=== PATIENT | male | born 1980 ===

== ENCOUNTER 2025-07-24 00:04 | Emergency (ER) | payer MEDICAID, OTHER ==
[~2025-07-24] VITALS: Ht 180.3 cm; Wt 160.0 kg
[2025-07-24] MEDS ORDERED: EPINEPHrine HCL 1 MG/10 ML SYRG IV ONE (00:05)
[2025-07-24] MEDS ORDERED: SODIUM BICARB 8.4% 50Meq/50ml SYR INJ IV ONE (00:05)
[2025-07-24] MEDS ORDERED: CALCIUM CHLOR(10%) 100MG/ML 10ML SYRINGE IV ONE (00:05)
[2025-07-24 00:15] VITALS: BP 0/0; PULSE 0; RESP 18; TEMP 98.6; O2SAT 90
--- NOTE | 2025-07-24 00:24 | ED.PDOC ---
History of Present Illness HPI Comments 45-year-old male who came to ER by EMS in cardiac arrest. Patient is last seen normal by family members at 10:40 p.m. was found unresponsive and paramedics were on scene by 11:04 p.m.. Patient was unresponsive on scene, CPR initiated by family members. Patient was asystole and CPR continued. IO at both legs, fluids given, intubated and chest compressions initiated. A total of 10 epinephrine was given, 1 NaHCO3 and 1 Calcium. Patient was shocked once at 120 joules. Patient remained asystole upon arrival at ER at 12:04 a.m. . Blood sugar was 465 on scene. reported that patient was reporting feeling weak, having difficulty walking prior to the event. REVIEW OF SYSTEMS: Unresponsive, patient in cardiac arrest Physical exam: General: Patient is unresponsive HEENT: Pupils fixed, dilated, nonreactive. There is no corneal reflex. Cardiac: No heart sounds auscultated, no pulses palpated Abdomen: Soft, nondistended Respiratory: No spontaneous respirations, no breath sounds auscultated Neuro: GCS 3, patient is unresponsive to painful stimulus, Chief Complaint: Cardiac arrest Time Seen by MD: 00:22 Reviewed Notes: Leader Writer Notes Allergies: Coded Allergies: Penicillins (Verified Allergy, Unknown, 07/24/25) Information Source: Emergency Med Personnel Mode of Arrival: EMS Past Medical History PAST MEDICAL HISTORY: DM Surgical History: Unobtainable Family History Family History: Unobtainable Social History Smoker: Unobtainable Alcohol: Unobtainable Drugs: Unobtainable Lives In: Home Was a procedure done? Was a procedure done?: No Differential Dx Considerations may include: Cardiac tamponade, hypovolemia, tension pneumothorax, myocardial infarction, pulmonary embolism, hemorrhagic shock, trauma, cardiac arrhythmia, hypoglycemia, CVA, hypothermia, hypo anemia, hyperkalemia, other X-Ray, Labs, Meds, VS Vital Signs Date Time Temp Pulse Resp B/P (MAP) Pulse Ox O2 Delivery O2 Flow Rate FiO2 07/24/25 00:15 98.6 0 0 0/0 0 98.6 Time of 1ST Reevaluation: 00:12 Reevaluation 1ST: Unchanged Patient Education/Counseling: Pt Unresponsive Family Education/Counseling: Other SEPSIS Sepsis Screen Vital Signs Date Time Temp Pulse Resp B/P (MAP) Pulse Ox O2 Delivery O2 Flow Rate FiO2 07/24/25 00:15 98.6 0 0 0/0 0 98.6 Departure 1 Departure Time of Disposition: 00:14 Impression: Primary Impression: Cardiac arrest Disposition: 20 Condition: Other () Comments 45-year-old male arrived to the emergency department in cardiac arrest with ACLS protocols in progress by EMS ongoing for over 1 hour. The patient has been intubated by EMS prior to arrival to the emergency department. On arrival to the emergency department Cardiac compressions were continued by staff in order to sustain blood flow. The patient was ventilated and oxygenated. The patient received appropriate ACLS measures and these were repeated as necessary throughout the resuscitation. CPR was performed under my direct supervision and guidance. See patient resuscitation status note for medications and times given. After discontinuation of resuscitation, I did not observe spontaneous breathing or appreciate heart sounds on auscultation. There was no palpable radial pulse. The patient did not respond to nail bed stimuli. I examined the patient and there was no pupillary response to light. Patient was pronounced . TOD: 0:14 Patient's family members were informed after their arrival to the emergency department. Critical Care Note Critical Care Time?: No Stability Stability form required: No Heart Score Heart Score: Heart Score Response (Comments) Value History N/A 0 EKG N/A 0 Age N/A 0 Risk Factors N/A 0 Troponin N/A 0 Total 0 I personally scribed for KIMI MARTELL MD ([email or web address]) on 07/24/25 at 00:24. Electronically submitted by Shalom Braun ([employer]). I personally scribed for KIMI MARTELL MD ([email or web address]) on 07/24/25 at 00:25. Electronically submitted by Shalom Braun ([employer]). KIMI MARTELL MD Jul 24, 2025 00:24
--- NOTE | 2025-07-24 06:34 | RESUS ---
CODE BLUE ASSESSSMENT History of Events History of Events: 45-year-old male who came to ER by EMS in cardiac arrest. Patient is last seen normal by family members at 10:40 p.m. was found unresponsive and paramedics were on scene by 11:04 p.m.. Patient was unresponsive on scene, CPR initiated by family members. Patient was asystole and CPR continued. IO at both legs, fluids given, intubated and chest compressions initiated. A total of 10 epinephrine was given, 1 NaHCO3 and 1 Calcium. Patient was shocked once at 120 joules. Patient remained asystole upon arrival at ER at 12:04 a.m. . Blood sugar was 465 on scene. reported that patient was reporting feeling weak, having difficulty walking prior to the event. Initial Information Date: Jul 23, 2025 Time: 22:40 Location of Arrest: In Field Arrest Witnessed: Yes CPR started initial time: 22:50 CPR started by whom: EMS Pre-Hospital Care: ACLS Type of arrest: Cardiac, Respiratory, Witnessed Spontaneous Respirations: No Pulse Present: No Monitoring: ECG, Pulse Oximetry, Apnea, Telemetry Crash Cart Opened and Supplies: Yes Airway Ventilation Breathing at Onset: Apneic O2 Sat by Pulse Oximetry: 0 Oxygen Delivery Method: Ambu-Bag Artificial Ventilation: Bag/Endo tube Intubation Size: 8.0 cuffed Intubated orally: Yes Tube secured at: 24 Confirmation: Auscultation, Exhaled CO2 Comments: pt intubated prior to arrival to er Circulation Circulation : Time: 00:05 Pulse Rate (adult): 0 Blood Pressure Systolic: 0 Blood Pressure Diastolic: 0 Temperature (Fahrenheit): 098.6 Procedure - IV Procedure - IV : IV start time: 00:08 IV Side: Right IV Location: Forarm Posterior IV Catheter Type: Saline Lock IV Placed: In Hospital IV Gauge: 20 Procedure - Intraosseous Site of Intraosseous: Tibia chirag-medial Comment: PLACED IN FIELD Medications & Response Medications and Responses #1: Medication Time: 00:05 ADULT Medications Given ADULT: Epinephrine 1 mg, Sodium Bacarbinate 50 meq, Calcium Chloride 10 mL Route of Administration: IO Heart Rate: 0 EKG Rhythm: Asystole Blood Pressure Systolic: 0 Blood Pressure Diastolic: 0 Respiratory Rate: 0 O2 Sat by Pulse Oximetry: 0 EKG Rhythm: Asystole Comment PULSE CHECK AT 0008 NO PULSE Medications and Responses #2: Medication Time: 00:08 ADULT Medications Given ADULT: Epinephrine 1 mg Route of Administration: IV Heart Rate: 0 EKG Rhythm: Asystole Blood Pressure Systolic: 0 Blood Pressure Diastolic: 0 Respiratory Rate: 0 O2 Sat by Pulse Oximetry: 0 IV Line Rate: 1000 EKG Rhythm: Asystole Comment 0011 NO PULSE Medications and Responses #3: Medication Time: 00:11 ADULT Medications Given ADULT: Epinephrine 1 mg Route of Administration: IV Heart Rate: 0 Blood Pressure Systolic: 0 Blood Pressure Diastolic: 0 Respiratory Rate: 0 O2 Sat by Pulse Oximetry: 0 EKG Rhythm: Asystole Comment NO PULSE 0014 PT PRONOUNCED. Pacing Pacer Pads Applied and Pacing: Yes Nurses Notes Lucia Coma Scale Eye Opening: None (1) [place] Coma Scale Verbal: None (1) [place] Coma Scale Motor: None (1) Pupil Reaction: Non Reactive Bedside Blood Glucose: 368 EKG Rhythm: Asystole Time Code Ended Time Code Ended: 00:14 Post Arrest Status: Outcome of code: Unsuccessful Patient pronounced by: DR. MARTELL Time patient pronounced: 00:14 Family notified: Yes Attending called: Yes Code Team Present: JEAN OAKLEY RN HS, [employer], REY RN, MANOJ RN, WILIAM RN, ROSANNA ERT, RAJINDER ERT, ÁNGELA RT, MORA RT Post Resuscitation Neurologica Pupil Size: 4 Comment: JEAN BLACKMON Jul 24, 2025 06:34
== END 2025-07-24 00:14 ==
LOC: ER 00:04 → EDBD 00:04 → ER 00:14
DX: I46.9 Cardiac arrest, cause unspecified (principal); E11.9 Type 2 diabetes mellitus without complications; F17.200 Nicotine dependence, unspecified, uncomplicated; Z79.899 Other long term (current) drug therapy; Z88.0 Allergy status to penicillin
CPT/HCPCS: 82947; 92950; 99285; J0169